=== PATIENT | male | born 1995 | race Two or more races ===

== ENCOUNTER 2024-07-14 16:44 | Emergency (ER) | payer MEDICAID, SELFPAY ==
[2024-07-14 16:53] VITALS: BP 119/74; PULSE 104; RESP 17; TEMP 37.2; O2SAT 95
--- NOTE | 2024-07-14 17:09 | PD.EDADULT ---
ED General RME/HPI General Chief complaint: Seizure Stated complaint: SEIZURES Time Seen by Provider: 07/14/24 17:04 Arrival date/time: 07/14/24 16:44 CC: Seizure disorder with seizures HPI patient had a seizure lasting approximately 4 to 5 minutes, postictal period is reported by EMS was approximately 10 minutes. Patient admits that he is weaned himself off his lamotrigine. He was on 100 mg twice daily and then weaned himself over the last 4 weeks down to half tablet once a day. Last dose 3 days ago. Patient is awake alert oriented complaining of a mild headache denies fever chills runny nose or headache prior to seizures. No other complaints at this time. EMS report tachycardia but no other abnormal vital signs. Related Data Previous Rx's ?Medication ?Instructions ?Recorded levetiracetam 500 mg tablet 500 mg PO BID #60 tabs 08/26/20 (Keppra) divalproex 500 mg tablet,delayed 500 mg PO TID 60 days #180 tabs 10/20/21 release (Depakote) lamotrigine 100 mg tablet 100 mg PO BID #30 tabs 07/14/24 (Lamictal) Allergies Allergy/AdvReac Type Severity Reaction Status Date / Time levetiracetam [From Keppra] Allergy Severe Difficulty Verified 01/03/24 07:56 Breathing Past Medical History Past Medical History NEUROLOGIC: Positive Neurological Disorders and Seizures CARDIAC: Positive Cardiac Disorders and Cardiac Arrhythmia; Negative Congestive Heart Failure RESPIRATORY: Negative Chronic Obstructive Pulmonary Disease (COPD) GENITOURINARY: Negative Renal Disease ENDOCRINE: Negative Diabetes Mellitus Type 1 or Diabetes Mellitus Type 2 HEMATOLOGIC: Negative Blood Disorders PSYCHO/SOCIAL: Positive Recreational Drug Use, Depression and Anxiety OTHER HISTORY: Negative Cancer Social History SMOKING STATUS: Current every day smoker SUBSTANCE USE: marijuana ED Exam Narrative Physical exam: [General: Not in any acute distress Head normocephalic HEENT: Within acceptable limits Neck is supple nontender Chest equal chest rise nontender to palpation Respiratory: Clear to auscultation no wheezes crackles or rubs CV: Rate rhythm is regular no murmurs rubs or clicks Abdomen is distended secondary to body habitus soft nontender no masses positive bowel sounds all 4 quadrants Back: No CVA tenderness no spinous process tenderness from cervical spine thoracic and lumbar spine Skin: Intact no petechiae rash induration ulceration or crepitus Extremities: Moving all extremities against resistance cap refill less than 2 seconds neurosensory intact Neuro: Awake alert oriented x3 Glascow coma 15 no focal deficits] Course Quality Measures none Orders Category Date Time Status Saline [Insert IV] NOW Care 07/14/24 17:05 Completed CBC Stat Lab 07/14/24 17:54 Completed CMP [Comprehensive Metabolic Panel] Stat Lab 07/14/24 17:54 Completed Drug Screen,Urine Stat Lab 07/14/24 17:47 Completed Urinalysis Stat Lab 07/14/24 17:47 Completed Acetaminophen Tab [Tylenol ES Tab] Med 07/14/24 19:53 Discontinued 1,000 mg PO X1 ONE LORazepam [Ativan Inj] Med 07/14/24 18:28 Discontinued 2 mg .ROUTE .STK-MED ONE LORazepam [Ativan Inj] Med 07/14/24 18:32 Discontinued 2 mg IVP X1 ONE Phenytoin Inj [Dilantin Inj] 1,000 mg Med 07/14/24 18:45 Discontinued Sodium Chloride 0.9% [Ns] 100 ml IV X1 lamoTRIgine [LaMICtal] Med 07/14/24 17:06 Discontinued 25 mg PO X1 ONE lamoTRIgine [LaMICtal] Med 07/14/24 17:15 Discontinued 50 mg PO X1 ONE Vital Signs Vital signs: Vital Signs Temperature 99.0 F 07/14/24 16:53 Pulse Rate 104 H 07/14/24 16:53 Respiratory Rate 17 07/14/24 16:53 Blood Pressure 119/74 07/14/24 16:53 Pulse Oximetry (%) 95 07/14/24 16:53 Oxygen Delivery Method Room Air 07/14/24 16:53 [facility] Patient data External records reviewed:: [facility] previous records and EMS form Clinical information provided by:: patient and EMS Social determinants that could affect healthcare access:: none Patient has the following chronic illnesses:: Seizure disorder, wean self off medication without consulting neurologist How is presenting disease/condition affected by chronic disease/condition?: exacerbated by Evaluation data The following diagnostics were reviewed and interpreted by me:: lab results Lab and/or radiology exams considered but not ordered:: CBC shows no acute leukocytosis anemia thrombocytopenia CMP shows no acute electrolyte imbalances renal impairment transaminitis or T. bili elevation Urine is negative for UTI Urine drug screen is positive for THC. Interpretation Summary: Patient be discharged home with a prescription to bridge him until he can see his neurologist for Lamictal. Patient is not willing to see Dr. Aguilar and refers to a neurologist in [place]. Medications Medications considered but not ordered:: None Medication administrations:: Medication Administration History Discontinued Medications Acetaminophen (Acetaminophen 500 Mg Tablet) 1,000 mg PO X1 ONE Stop: 07/14/24 19:54 Last Admin: 07/14/24 20:15 Dose: 1,000 mg Documented By: BILL Phenytoin Sodium 1,000 mg/ (Sodium Chloride) 120 mls @ 240 mls/hr IV X1 ONE Stop: 07/14/24 19:14 Last Infusion: 07/14/24 21:00 Dose: Infused Documented By: Admin: 07/14/24 19:20 Dose: 240 mls/hr Documented By: BILL Lamotrigine (Lamotrigine 25 Mg Chew) 25 mg PO X1 ONE Stop: 07/14/24 17:07 Last Admin: 07/14/24 17:38 Dose: Not Given Documented By: DO Non-Admin Reason: Cancelled by Provider Lamotrigine (Lamotrigine 25 Mg Chew) 50 mg PO X1 ONE Stop: 07/14/24 17:16 Last Admin: 07/14/24 18:18 Dose: 50 mg Documented By: Lorazepam (Lorazepam 2 Mg/Ml Vial) 2 mg IVP X1 ONE Stop: 07/14/24 18:33 Last Admin: 07/14/24 18:34 Dose: 2 mg Documented By: DO Comments: no scanner available Lorazepam (Lorazepam 2 Mg/Ml Vial) Confirm Administered Dose 2 mg .ROUTE .STK-MED ONE Stop: 07/14/24 18:29 Last Admin: 07/14/24 18:42 Dose: Not Given Documented By: DO Non-Admin Reason: Override Medication None Consultations Consultation(s) initiated? (list below): No Diagnosis Differential Diagnosis ED Complaint MDM: Pseudoseizures seizures status epilepticus Most likely diagnosis given after review of the tests above:: Seizure secondary to medication noncompliance Admission Indicated Admission indicated?: not indicated Explain why admission is indicated or not indicated:: Stable for outpatient follow-up Admission Request Was there a request for admission?: No Disposition Plan Disposition Plan: Discharge Discharge Attestation Discharge Attestation: The patient and all family members were given an opportunity to ask questions and understood the discharge instructions. Discharge instructions specifically effects, indications for sooner follow up or return to the emergency department, and the expected course of current diagnosis. Patient condition: Stable Medical Decision Making Differential Diagnosis Differential Diagnosis: Pseudoseizures seizures status epilepticus Lab Data 07/14/24 17:54 07/14/24 17:54 Labs: Lab Results 07/14/24 07/14/24 Range/Units 17:47 17:54 WBC 10.5 (3.8-10.6) Thou/mm3 RBC 4.95 (4.50-5.90) Miln/mm3 Hgb 14.9 (13.5-16.0) g/dL Hct 43.2 (41.0-53.0) % MCV 87 (80-100) fL MCH 30.1 (25.0-35.0) pg MCHC 34.5 (31.0-37.0) g/dl RDW Std Deviation 39.1 (35.1-43.9) fL Plt Count 300 (140-440) Thou/mm3 Neut % (Auto) 72 (37-80) % Lymph % (Auto) 18 (10-50) % [place] % (Auto) 7 (0-12) % Eos % (Auto) 2 (0-10) % Baso % (Auto) 0 (0-2.5) % Neut # (Auto) 7.6 (1.8-7.7) Thou/mm3 Lymph # (Auto) 1.9 (1.0-4.8) Thou/mm3 Gove # (Auto) 0.8 (0.0-0.8) Thou/mm3 Eos # (Auto) 0.2 (0.0-0.5) Thou/mm3 Baso # (Auto) 0.0 (0.0-0.2) Thou/mm3 Immature Gran # (Auto) 0.02 H (0.00-0.00) Thou/mm3 Absolute Nucleated RBC 0.00 (0.00-0.00) Thou/mm3 Immature Gran % 0 (0-0) % Nucleated RBC % 0 (0) /100 WBC Sodium 139 (136-145) mMol/L Potassium 3.8 (3.4-5.1) mMol/L Chloride 104 (98-107) mMol/L Carbon Dioxide 26.8 (20.0-31.0) mMol/L Anion Gap 8 (7-16) BUN 12 (9-23) mg/dL Creatinine 1.0 (0.6-1.3) mg/dL Estim Creat Clear Calc 129.0 (>60) mL/min eGFR > 60 (60 - ) See Note BUN/Creatinine Ratio 12 (12-20) Ratio Glucose 98 (74-106) mg/dL Calculated Osmolality 277 (275-295) Calcium 9.4 (8.3-10.6) mg/dL Corrected Calcium 9.4 (8.5-10.1) mg/dL Total Bilirubin 0.5 (0.3-1.2) mg/dL AST 22 (0-34) U/L ALT 26 (10-49) U/L Alkaline Phosphatase 51 (46-116) U/L Total Protein 7.4 (5.7-8.2) gm/dL Albumin 4.8 (3.5-5.0) gm/dL Globulin 2.6 (2.3-3.5) gm/dL Albumin/Globulin Ratio 1.8 (1.2-2.2) Ur Collection Type Clean Catch Urine Color Lt-Yellow (Lt Yel-Yel) Urine Clarity Clear (Clear/Hazy) Urine pH 6.0 (5.0-7.0) Ur Specific [place] 1.025 (1.001-1.035) Urine Protein 1+ A (Neg - Trace) Urine Glucose (UA) Negative (Negative) Urine Ketones Trace (Negative) Urine Blood Trace (Negative) Urine Nitrite Negative (Negative) Urine Bilirubin Negative (Negative) Urine Urobilinogen (Auto) Negative (0.0-1.0) mg/dL Ur Leukocyte Esterase Negative (Negative) Urine RBC 3 (0-3) /hpf Urine WBC 1 (0-5) /hpf Ur Squamous Epith Cells 0 (0-5) /hpf Urine Bacteria None (None) Urine Opiates Screen Negative (Negative) Urine Fentanyl Screen Negative (Negative) Ur Barbiturates Screen Negative (Negative) U Amphetamin/Meth Scrn Negative (Negative) U Benzodiazepines Scrn Negative (Negative) U Cocaine Metab Screen Negative (Negative) U Marijuana (THC) Screen Positive A (Negative) Discharge Plan Plan Patient Disposition: HOME (Self Care) Patient condition on transfer: Stable Prescriptions/Referrals Prescriptions/Med Rec: New lamotrigine [Lamictal] 100 mg tablet 100 mg PO BID Qty: 30 1RF No Action divalproex [Depakote] 500 mg tablet,delayed release (DR/EC) 500 mg PO TID 60 Days Qty: 180 1RF Rx Instructions: one pill in am, and 2 pills in the evening (so technically, it will be twice a day) levetiracetam [Keppra] 500 mg tablet 500 mg PO BID Qty: 60 0RF Referrals: Oneal Thomas FNP [Primary Care Provider] - In 1 week Problem List Clinical Impression: Seizure disorder Patient/Caregiver Discharge Instructions Other Activity Instructions:: Do not wean yourself off Lamictal again please coordinate with your neurologist your antiseizure medications and remain on the prescribed dose. Education Materials: ED Seizure, Recurrent (Adult) Print Language: Somali Stand Alone Forms: Aruna Award Info., Work/School Release, Patient Portal Info Letter BIRD/KVNG Supervising Physician BIRD/KVNG Supervising Physician: Sarath Rice ENP
--- NOTE | 2024-07-14 17:40 | PC.NURSE ---
PT CAME IN WITH C/O SZ ACTIVITY. PT STATES THAT HE WAS WATCHING TV THEN WOKE UP TO PARAMEDICS IN FRONT OF HIM. PT HAS HISTORY OF SZ BUT STATES THAT HE STOPPED TAKING HIS MEDICATIONS 1 MONTH AGO BECAUSE HE DID NOT LIKE THE WAY THEY MADE HIM FEEL.
--- NOTE | 2024-07-14 17:42 | PC.NURSE ---
SIDE RAILS PADDED AT THIS TIME FOR SEIZURE PRECAUTIONS
[2024-07-14 17:55] VITALS: BMI 24.3
[2024-07-14 18:01] LABS: Collection Type, Urine Clean Catch; Squamous Epithelial Cell,Urine 0 /hpf (0-5)
[2024-07-14 18:05] LABS: Basophils % (Auto) 0 % (0-2.5); Eosinophils # (Auto) 0.2 Thou/mm3 (0.0-0.5); Eosinophils % (Auto) 2 % (0-10); Hematocrit 43.2 % (41.0-53.0); Hemoglobin 14.9 g/dL (13.5-16.0); Immature Granulocytes % (Auto) 0 % (0-0); Immature Granulocytes Auto 0.02 Thou/mm3 (0.00-0.00); Lymphocytes # (Auto) 1.9 Thou/mm3 (1.0-4.8); Lymphocytes % (Auto) 18 % (10-50); Mean Corpuscular HGB Conc 34.5 g/dl (31.0-37.0); Mean Corpuscular Hemoglobin 30.1 pg (25.0-35.0); Mean Corpuscular Volume 87 fL (80-100); Monocytes # (Auto) 0.8 Thou/mm3 (0.0-0.8); Monocytes % (Auto) 7 % (0-12); Neutrophils # (Auto) 7.6 Thou/mm3 (1.8-7.7); Neutrophils % (Auto) 72 % (37-80); Nucleated Red Blood Cell % 0 /100 WBC (0); Platelet Count 300 Thou/mm3 (140-440); RDW Standard Deviation 39.1 fL (35.1-43.9); Red Blood Count 4.95 Miln/mm3 (4.50-5.90); White Blood Count 10.5 Thou/mm3 (3.8-10.6)
[2024-07-14] MEDS: lamoTRIgine 25 MG CHEW 50 MG PO (18:18)
[2024-07-14 18:20] LABS: Bilirubin,Urine Negative (Negative); Blood,Urine Trace (Negative); Clarity,Urine Clear (Clear/Hazy); Color,Urine Lt-Yellow (Lt Yel-Yel); Glucose, Urine Negative (Negative); Ketones,Urine Trace (Negative); Leukocyte Esterase,Urine Negative (Negative); Nitrite,Urine Negative (Negative); Protein,Urine 1+ (Neg - Trace); RBC,Urine 3 /hpf (0-3); Specific Gravity,Urine 1.025 (1.001-1.035); Urobilinogen,Urine Negative mg/dL (0.0-1.0); WBC,Urine 1 /hpf (0-5)
[2024-07-14 18:31] LABS: Alanine Aminotransferase 26 U/L (10-49); Albumin, Serum 4.8 gm/dL (3.5-5.0); Albumin/Globulin Ratio 1.8 (1.2-2.2); Alkaline Phosphatase 51 U/L (46-116); Anion Gap 8 (7-16); Aspartate Amino Transferase 22 U/L (0-34); BUN/Creatinine Ratio 12 Ratio (12-20); Bilirubin,Total 0.5 mg/dL (0.3-1.2); Blood Urea Nitrogen 12 mg/dL (9-23); Calcium 9.4 mg/dL (8.3-10.6); Calcium (Corrected) 9.4 mg/dL (8.5-10.1); Carbon Dioxide 26.8 mMol/L (20.0-31.0); Chloride 104 mMol/L (98-107); Globulin 2.6 gm/dL (2.3-3.5); Glucose 98 mg/dL (74-106); Osmolality,Calculated 277 (275-295); Potassium 3.8 mMol/L (3.4-5.1); Sodium 139 mMol/L (136-145); Total Protein 7.4 gm/dL (5.7-8.2); eGFR > 60 See Note
--- NOTE | 2024-07-14 18:31 | PC.NURSE ---
pt began having a full tonic clonic seizure at this time lasting 2 min. provider at bedside
[2024-07-14] MEDS: LORazepam 2 MG/ML VIAL IVP (18:34)
[2024-07-14 18:42] LABS: Amphetamine/Methamp Scrn,U Negative (Negative); Barbiturate Screen,Urine Negative (Negative); Benzodiazepines Screen,Urine Negative (Negative); Benzoylecgonine Screen, Ur Negative (Negative); Fentanyl Screen,Urine Negative (Negative); Opiate Screen,Urine Negative (Negative); THC Screen,Urine Positive (Negative)
[2024-07-14 18:46] VITALS: BP 122/62; PULSE 125; RESP 18; TEMP 36.3; O2SAT 95
[2024-07-14] MEDS: PHENYTOIN INJ 1,000 MG in SODIUM CHLORIDE 0.9% 100 ML 240 MG IV (19:20)
[2024-07-14 20:03] VITALS: BP 116/81; PULSE 80; RESP 20; O2SAT 95
[2024-07-14] MEDS: ACETAMINOPHEN 500 MG TABLET 1000 MG PO (20:15)
[2024-07-14 20:16] VITALS: BP 116/81; PULSE 81; RESP 18; TEMP 36.6; O2SAT 98
== END 2024-07-14 21:02 | disposition home or self-care (01) ==
PROVIDERS: Registered Nurse General Practice; Emergency Provider Emergency Medicine; PCP Nurse Practitioner
DX: R56.9 Unspecified convulsions (principal)
CPT/HCPCS: 36415; 80053; 80307; 81001; 85025; 96374; 99284; J1165; J2060; J7050; A9270

== ENCOUNTER 2024-09-21 22:03 | Emergency (ER) | payer MEDICAID, SELFPAY ==
[2024-09-21 22:14] VITALS: BP 127/69; PULSE 86; RESP 18; TEMP 36.8; O2SAT 96
[2024-09-21 22:16] VITALS: BMI 23.1
--- NOTE | 2024-09-21 22:51 | PC.NURSE ---
2240 PT C/O HE IS WAITING TO LONG TO GET INTO AA ROOM. PT STATES HE SHOULD LEAVE. I EXPLAINED THAT EVERY ROOM THAT HAS A NURSE IS FULL AT THIS TIME.
--- NOTE | 2024-09-21 22:53 | PC.NURSE ---
7363 PT TALKING ON HIS PHONE AND WALKING OUT OF ED.
--- NOTE | 2024-09-21 22:59 | PC.NURSE ---
PER EMS PATIENT DID NOT WANT TO BE SEEN AND WALKED OUT OF THE ED. PATIENT HAD CALLED FOR TRANSPORTATION, PATIENT WAS SEEN WALKING OUT OF ED LOBBY AND ENTERING A VEHICLE AND LEAVING. NO REPORT RECEIVED FROM EMS. NO CONTACT MADE WITH PATIENT. PATIENT LEFT PRIOR TO TRIAGE.
== END 2024-09-21 22:59 | disposition left against medical advice (07) ==
LOC: SERX 23:10
PROVIDERS: Emergency Provider Emergency Medicine
DX: Z53.21 Procedure and treatment not carried out due to patient leaving prior to being seen by health care provider (principal)
CPT/HCPCS: 99281

== ENCOUNTER 2025-05-19 05:31 | Emergency (ER) | payer MEDICAID, SELFPAY ==
--- NOTE | 2025-05-19 05:34 | PD.EDSEIZ ---
ED Seizures RME/HPI General Chief Complaint: Seizure Stated Complaint: SEIZURES Time Seen by Provider: 05/19/25 05:33 Arrival date/time: 05/19/25 05:31 RME / HPI RME / HPI Narrative: DR. ANN MAIN ED EVALUATION: Patient with Hx of Seizure Disorder was reported 3 successive seizures over the last several hours. Patient initially resisted presenting to ED via EMS and eventually conceded. Patient experienced generalized tonic-clonic seizure en route lasting approximately 30 seconds with slight post-ictal phase. No urinary or bowel incontinence/tongue bite. Uopn arrival is actively seizing, so Hx primarily via EMS. PMH: Seizure Disorder, Cardiac arrythmia, Depression, and Anxiety PSH: Non-contributory Allergies: Social: Positive for Marijuana Related Data Previous Rx's ?Medication ?Instructions ?Recorded levetiracetam 500 mg tablet 500 mg PO BID #60 tabs 08/26/20 (Keppra) divalproex 500 mg tablet,delayed 500 mg PO TID 60 days #180 tabs 10/20/21 release (Depakote) lamotrigine 100 mg tablet 100 mg PO BID #30 tabs 07/14/24 (Lamictal) lamotrigine 100 mg tablet 100 mg PO QDAY #90 tabs 05/19/25 (Lamictal) lamotrigine 200 mg tablet 200 mg PO QDAY #90 tabs 05/19/25 (Lamictal) Allergies Allergy/AdvReac Type Severity Reaction Status Date / Time levetiracetam (From Keppra) Allergy Severe Difficulty Verified 01/03/24 07:56 Breathing Review of Systems Review of Systems ROS Unobtainable: unobtainable due to medical condition Past Medical History Past Medical History NEUROLOGIC: Positive Neurological Disorders and Seizures CARDIAC: Positive Cardiac Disorders and Cardiac Arrhythmia PSYCHO/SOCIAL: Positive Recreational Drug Use, Depression and Anxiety Social History SMOKING STATUS: Current every day smoker SUBSTANCE USE: marijuana ED Exam Narrative Physical exam: GEN. APPEARANCE: The patient is ongoing tonic clonic activity with rhythmic movement notably diaphoretic, pupils mid-dilated and reactive. Patient has good eye contact. Patient is cooperative. VITALS: All vitals were reviewed which are normal according to my interpretation HEENT: Normocephalic, atraumatic and nontender. Pupils are mid-dilated and reactive. Oral mucosa is moist. NECK: Supple, nontender, no meningismus, no JVD. There is no thyromegaly and no lymphadenopathy. CHEST: Nontender on palpation no deformity and no crepitus. CARDIOVASCULAR: Heart regular rhythm, no murmur or gallop rub or extra beats. LUNGS: Sonorous respirations bilaterally with symmetrical chest rise. No laboring tachypnea. No intercostal subcostal retraction. ABDOMEN: Soft, flat, nontender to palpation, no guarding or rebound tenderness. There are no abnormal masses palpated. No pulsatile masses or bruits. Active and normal bowel sounds. EXTREMITIES: Normal inspection and palpation. No edema. No cyanosis. Patient is able to move all 4 extremities well SKIN: Warm and dry, no rashes noted. MUSCULOSKELETAL: No lumbar or midline bony tenderness. There is no CVA tenderness. No paraspinal muscle spasm or tenderness. NEURO: Post-ictal, minimal response to tactile and verbal stimuli, skin is grossly diaphoretic PSYCHIATRIC: Unaccessible at this time. LYMPHATICS: No major lymphadenopathy noted. Course Quality Measures none Orders Category Date Time Status Bedside COVID-19 Antigen Test NOW Care 05/19/25 05:49 Completed [employer] Steward/Stewardess NOW Care 05/19/25 05:34 Completed Continuous Pulse Oximetry NOW Care 05/19/25 05:33 Completed EKG (ED ONLY) *Do not use* NOW Care 05/19/25 05:34 Completed Insert IV STAT Care 05/19/25 05:33 Completed NPO NOW Care 05/19/25 05:34 Completed Seizure precautions ONCE Care 05/19/25 05:[address] cervical spine wo con Stat Exams 05/19/25 05:[address] head/brain wo con Stat Exams 05/19/25 05:37 Completed EKG (ED Only) Stat Exams 05/19/25 05:33 Ordered XR chest 1V portable Stat Exams 05/19/25 05:53 Completed Acetaminophen Stat Lab 05/19/25 05:52 Completed Alcohol, Blood Medical Stat Lab 05/19/25 05:52 Completed CBC Stat Lab 05/19/25 05:52 Completed Comprehensive Metabolic Panel Stat Lab 05/19/25 05:52 Completed Drug Screen,Urine Stat Lab 05/19/25 09:30 Completed Influenza A & B Rapid Panel Stat Lab 05/19/25 05:52 Completed Magnesium Stat Lab 05/19/25 05:52 Completed TSH [Thyroid Stimulating Hormone] Stat Lab 05/19/25 05:52 Completed Troponin I Stat Lab 05/19/25 05:52 Completed Urinalysis, C/S if Indicated Stat Lab 05/19/25 09:30 Completed ACETAMINOPHEN w/COD 300-30 [Tylenol w/Cod #3] Med 05/19/25 06:37 Discontinued 2 tab PO X1 ONE Ketorolac Inj [Toradol Inj] Med 05/19/25 09:29 Discontinued 30 mg IVP X1 ONE Lacosamide Ivp [Vimpat IVP] Med 05/19/25 05:58 Discontinued 200 mg IVP X1 ONE Midazolam Inj [Versed Inj] Med 05/19/25 05:46 Discontinued 5 mg IM X1 ONE Midazolam Inj [Versed Inj] Med 05/19/25 05:33 Discontinued 5 mg IVP X1 ONE Morphine* Inj Med 05/19/25 09:29 Discontinued 2 mg IV X1 ONE Ondansetron Inj [Zofran Inj] Med 05/19/25 06:38 Discontinued 4 mg IVP X1 ONE Sodium Chloride 0.9% 1000 ml [Ns] 1,000 ml Med 05/19/25 05:33 Discontinued IV 1,000 mls/hr Vital Signs Vital signs: Vital Signs Temperature 99.8 F 05/19/25 06:08 Pulse Rate 81 05/19/25 06:08 Respiratory Rate 14 05/19/25 06:08 Blood Pressure 173/89 H 05/19/25 06:08 Pulse Oximetry (%) 99 05/19/25 06:08 Oxygen Delivery Method Room Air 05/19/25 06:08 Seizure MDM Narrative MDM Narrative:: Scribe Attestation: IKaylynn am scribing for and in the presence of Dr. Terry. Provider Notation: Although this document has been carefully reviewed, there may still be some phonetic and other typographical errors. These errors are purely grammatical due to imperfections in the software program and should not be construed in any way to compromise the substance of the patient's medical care during this visit. Patient with Hx of Seizure Disorder was reported 3 successive seizures over the last several hours. Patient initially resisted presenting to ED via EMS and eventually conceded. Please see PE findings. Patient immediately triaged to monitored bed, IV established, patient received 5 mg of Versed. At the time, seizure activity abated. Seizure protocol initiated and CT scan will also be obtained given recent history of head strike. Please see AM physician's note for final disposition. Patient data External records reviewed:: [facility] previous records (Reviewed prior ED records from 07/14/24. Patient was seen for Seizure disorder.) and EMS form Clinical information provided by:: EMS Social determinants that could affect healthcare access:: substance use (Marijuana) Patient has the following chronic illnesses:: Seizures How is presenting disease/condition affected by chronic disease/condition?: exacerbated by Evaluation data The following diagnostics were reviewed and interpreted by me:: lab results, radiology exam(s) and EKG tracing(s) (Pending.) Lab and/or radiology exams considered but not ordered:: None Interpretation Summary: RADIOLOGY Head/Brain CT: Pending official radiology report. Medications / Prescriptions Medications or Prescriptions considered but not ordered:: None Medication administrations:: Medication Administration History Discontinued Medications Acetaminophen/Codeine Phosphate (Acetaminophen W/Cod 300-30 Tablet) 2 tab PO X1 ONE Stop: 05/19/25 06:38 Last Admin: 05/19/25 06:43 Dose: 2 tab Documented By: DT Sodium Chloride (Ns) 1,000 mls @ 1,000 mls/hr IV .Q1H ONE Stop: 05/19/25 06:32 Last Infusion: 05/19/25 06:50 Dose: Infused Documented By: Admin: 05/19/25 05:50 Dose: 1,000 mls/hr Documented By: DT Ketorolac Tromethamine (Ketorolac Inj 30 Mg/Ml Vial) 30 mg IVP X1 ONE Stop: 05/19/25 09:30 Last Admin: 05/19/25 10:09 Dose: 30 mg Documented By: VG Lacosamide (Lacosamide Inj 200 Mg/20 Ml Vial) 200 mg IVP X1 ONE Stop: 05/19/25 05:59 Last Admin: 05/19/25 06:23 Dose: 200 mg Documented By: DT Midazolam HCl (Midazolam Inj 1 Mg/Ml Vial 2 Ml) 5 mg IVP X1 ONE Stop: 05/19/25 05:34 Last Admin: 05/19/25 05:47 Dose: Not Given Documented By: CVL Non-Admin Reason: Cancelled by Provider Midazolam HCl (Midazolam Inj 1 Mg/Ml Vial 2 Ml) 5 mg IM X1 ONE Stop: 05/19/25 05:47 Last Admin: 05/19/25 05:53 Dose: 5 mg Documented By: DT Morphine Sulfate (Morphine Sulf Inj 4 Mg/Ml Vial) 2 mg IV X1 ONE Stop: 05/19/25 09:30 Last Admin: 05/19/25 10:05 Dose: Not Given Documented By: VG Non-Admin Reason: Patient Refused Ondansetron HCl (Ondansetron Inj 2 Mg/Ml Inj 2 Ml) 4 mg IVP X1 ONE; Protocol Stop: 05/19/25 06:39 Last Admin: 05/19/25 06:46 Dose: 4 mg Documented By: DT See above if any Consultations Consultation(s) initiated? (list below): No Diagnosis Seizure Differential Diagnosis: intractable seizure disorder, focal seizure, generalized seizure, new onset seizure, epileptic seizure and status epilepticus Most likely diagnosis given after review of the tests above:: Recurrent Seizure Admission Indicated Admission indicated?: not indicated Explain why admission is indicated or not indicated:: Pending CT, Labs, and EKG Admission Request Was there a request for admission?: No Disposition Plan Disposition Plan: other (specify) (Signed out to Dr. Ma at 6 AM) Discharge Plan Plan Patient Disposition: HOME (Self Care) Prescriptions/Referrals Prescriptions/Med Rec: New lamotrigine [Lamictal] 100 mg tablet 100 mg PO QDAY Qty: 90 0RF Rx Instructions: 100 mg every morning lamotrigine [Lamictal] 200 mg tablet 200 mg PO QDAY Qty: 90 0RF Rx Instructions: 200 mg every night at bedtime No Action divalproex [Depakote] 500 mg tablet,delayed release (DR/EC) 500 mg PO TID 60 Days Qty: 180 1RF Rx Instructions: one pill in am, and 2 pills in the evening (so technically, it will be twice a day) levetiracetam [Keppra] 500 mg tablet 500 mg PO BID Qty: 60 0RF lamotrigine [Lamictal] 100 mg tablet 100 mg PO BID Qty: 30 1RF Problem List Clinical Impression: Recurrent seizures Patient/Caregiver Discharge Instructions Discharge Activity: activity as tolerated Education Materials: ED Seizure, Recurrent (Adult) Additional Instructions: Discharge Instructions from Dr. Ma printed for you: 1.? After extensive evaluation, there is no life-threatening condition.? Such as stroke or brain tumor or brain injury. 2.? To prevent another seizure, take Lamictal 100 mg every morning and 200 mg every night at bedtime, as prescribed. 3.? See Dr. Aguilar (local neurologist) on 05/21/2025 for recheck and further care. Ask to review all test results and official radiology reports, to make sure you receive all necessary follow-ups and monitoring. 4.? Seek immediate medical care with another seizure or with any concerns. Print Language: Hungarian Stand Alone Forms: Aruna Award Info., Patient Portal Info Letter
--- NOTE | 2025-05-19 05:37 | XR_ITS ---
Examination: CT brain head without contrast. 2-D sagittal coronal reconstructions Date and time of exam: 05/19/2025, 8:03 a.m. CTDI: vol (mGy): 53.4 DLP: (mGycm): 1104 INDICATION: Seizure COMPARISON: 01/03/2024 Technique: Multiple CT axial sections of the brain have been obtained, 5 mm slice thickness. Contrast has not been administered. 2-D sagittal, coronal reconstructions have been obtained Low dose protocols were performed. One or more of the following dose reduction techniques were used; automated exposure control, adjustment of the mA and/or KV according to patient size, use of iterative reconstruction technique. Findings: No significant ventricular enlargement. Intra-axial or extra-axial hemorrhage density is not seen. No mass effect or midline shift Basal cisterns are not remarkable. Fourth ventricle is midline. Cranial vault intact. Impression: Negative for acute hemorrhage, mass effect or midline shift
[2025-05-19 05:45] VITALS: PULSE 90; RESP 14; O2SAT 99; BMI 23.1
[2025-05-19] MEDS: SODIUM CHLORIDE 0.9% 1000 ML 1,000 ML IV (05:50)
[2025-05-19] MEDS: MIDAZOLAM INJ 1 MG/ML VIAL 2 ML 5 MG IM (05:53)
--- NOTE | 2025-05-19 05:53 | XR_ITS ---
EXAMINATION: AP chest single view TECHNIQUE: AP portable upright chest single view Date and time: May 19, 2025, 0639 hours, comparison December 24, 2020 INDICATION: Chest pain shortness of breath today. FINDINGS: Normal heart size Minor prominence pulmonary vasculature. No lobar pneumonia or pulmonary edema Intact osseous structures IMPRESSION: Minor prominence pulmonary vasculature
--- NOTE | 2025-05-19 05:53 | XR_ITS ---
Examination: CT cervical spine without contrast 2-D sagittal reconstructions 2-D coronal reconstructions 3-D reconstructions. Exam date and time: 05/19/2025, 8:03 a.m. CTDI:vol (mGy) 16.8 DLP: (mGycm) 374 INDICATION: Trauma Technique: Multiple 2 mm axial sections of the cervical spine have been obtained. The coronal and sagittal reconstructions have been obtained. 3-D reconstructions have been obtained. Low dose protocols were performed. One or more of the following dose reduction techniques were used; automated exposure control, adjustment of the mA and/or KV according to patient size, use of iterative reconstruction technique. Findings: Axial sections demonstrate intact base of the skull. C1 exhibit satisfactory relationship to the odontoid. No acute cervical vertebral body fracture seen. Alignment posterior spinous processes satisfactory. No significant degenerative changes. Impression: No acute cervical fracture.
[2025-05-19 06:08] VITALS: BP 173/89; PULSE 81; RESP 14; TEMP 37.7; O2SAT 99
[2025-05-19 06:18] LABS: Basophils # (Auto) 0.1 Thou/mm3 (0.0-0.2); Basophils % (Auto) 0 % (0-2.5); Eosinophils # (Auto) 0.0 Thou/mm3 (0.0-0.5); Eosinophils % (Auto) 0 % (0-10); Hematocrit 47.6 % (41.0-53.0); Hemoglobin 16.0 g/dL (13.5-16.0); Immature Granulocytes Auto 0.08 Thou/mm3 (0.00-0.00); Lymphocytes # (Auto) 2.7 Thou/mm3 (1.0-4.8); Lymphocytes % (Auto) 15 % (10-50); Mean Corpuscular HGB Conc 33.6 g/dl (31.0-37.0); Mean Corpuscular Hemoglobin 30.1 pg (25.0-35.0); Mean Corpuscular Volume 90 fL (80-100); Monocytes # (Auto) 0.9 Thou/mm3 (0.0-0.8); Monocytes % (Auto) 5 % (0-12); Neutrophils # (Auto) 14.1 Thou/mm3 (1.8-7.7); Neutrophils % (Auto) 79 % (37-80); Nucleated Red Blood Cell # 0.00 Thou/mm3 (0.00-0.00); Nucleated Red Blood Cell % 0 /100 WBC (0); Platelet Count 408 Thou/mm3 (140-440); RDW Standard Deviation 40.2 fL (35.1-43.9); Red Blood Count 5.31 Miln/mm3 (4.50-5.90); White Blood Count 17.9 Thou/mm3 (3.8-10.6)
--- NOTE | 2025-05-19 06:19 | PD.EDADDENDU ---
Emergency Room Addendum <Isrrael Ma MD - Last Filed: 05/19/25 06:19> Addendum Narrative: My interpretation of the EKG is: Sinus rhythm (90 bpm) with nonspecific ST-T changes. Isrrael Ma MD <Sunithajanice Rust - Last Filed: 05/19/25 09:27> Addendum Narrative: I took over the care from Dr. Terry, the previous shift physician at 0600 hours on 05/19/2025.? See previous notes for complete H & P and ED course. I reviewed all diagnostic test results. My interpretation of the EKG is: Sinus rhythm (90 bpm) with nonspecific ST-T changes. Isrrael Ma MD My interpretation of the chest x-ray is My review of the head CT report is?negative for acute hemorrhage, mass effect or midline shift My review of the cervical CT report is?no acute cervical fracture. Blood tests and urine tests Diagnoses include Treatment here included Significant improvement Not yet done: I discussed the case with our hospitalist.? About the presentation and exam and diagnostics and treatments here.? And need of further care in the hospital. Will accept the patient. Not yet done: Based on my best medical judgment, made decision no further evaluation or treatment indicated at this time.? Patient understands and agrees to the discharge instructions customized and printed, see below. Isrrael Ma MD
[2025-05-19] MEDS: LACOSAMIDE INJ 200 MG/20 ML VIAL IVP (06:23)
[2025-05-19 06:33] VITALS: BP 118/64; PULSE 72; RESP 14; O2SAT 99
[2025-05-19] MEDS: ACETAMINOPHEN w/COD 300-30 TABLET 2 TAB PO (06:43)
[2025-05-19] MEDS: ONDANSETRON INJ 2 MG/ML INJ 2 ML 4 MG IVP (06:46)
[2025-05-19 07:17] LABS: Acetaminophen < 2.0 mcg/mL (10.0-20.0); Alanine Aminotransferase 26 U/L (10-49); Albumin, Serum 5.3 gm/dL (3.5-5.0); Albumin/Globulin Ratio 2.0 (1.2-2.2); Alcohol, Blood Medical < 3.0 mg/dL (0-10.0); Alkaline Phosphatase 59 U/L (46-116); Anion Gap 23 (7-16); Aspartate Amino Transferase 40 U/L (0-34); BUN/Creatinine Ratio 7 Ratio (12-20); Bilirubin,Total 1.0 mg/dL (0.3-1.2); Blood Urea Nitrogen 7 mg/dL (9-23); Calcium 9.6 mg/dL (8.3-10.6); Calcium (Corrected) 9.6 mg/dL (8.5-10.1); Carbon Dioxide 15.3 mMol/L (20.0-31.0); Chloride 105 mMol/L (98-107); Creatinine (Component) 1.0 mg/dL (0.6-1.3); Estimated Creatinine Clearance 127.0 mL/min (>60); Globulin 2.6 gm/dL (2.3-3.5); Glucose 146 mg/dL (74-106); Magnesium 2.1 mg/dL (1.6-2.6); Osmolality,Calculated 285 (275-295); Potassium 3.9 mMol/L (3.4-5.1); Sodium 143 mMol/L (136-145); Thyroid Stimulating Hormone 0.74 uIU/mL (0.55-4.78); Total Protein 7.9 gm/dL (5.7-8.2); Troponin I < 0.002 ng/mL (0.0-0.045); eGFR > 60 See Note
[2025-05-19 07:20] LABS: Influenza A Ag Negative; Influenza B Ag Negative
[2025-05-19 08:00] VITALS: PULSE 99
[2025-05-19 09:45] LABS: Collection Type, Urine Clean Catch
[2025-05-19 10:06] LABS: Bilirubin,Urine Negative (Negative); Blood,Urine Negative (Negative); Clarity,Urine Clear (Clear/Hazy); Color,Urine Lt-Yellow (Lt Yel-Yel); Culture Indicated,Urine Not Indicated; Glucose, Urine Negative (Negative); Ketones,Urine 2+ (Negative); Leukocyte Esterase,Urine Negative (Negative); Nitrite,Urine Negative (Negative); PH,Urine 7.0 (5.0-7.0); Protein,Urine Trace (Neg - Trace); RBC,Urine 1 /hpf (0-3); Specific Gravity,Urine 1.022 (1.001-1.035); Squamous Epithelial Cell,Urine < 1 /hpf (0-5); Urobilinogen,Urine Negative mg/dL (0.0-1.0); WBC,Urine 1 /hpf (0-5)
[2025-05-19] MEDS: KETOROLAC INJ 30 MG/ML VIAL IVP (10:09)
[2025-05-19 10:21] VITALS: BP 115/51; PULSE 90; RESP 18; TEMP 37.1; O2SAT 97
[2025-05-19 10:22] LABS: Amphetamine/Methamp Scrn,U Negative (Negative); Barbiturate Screen,Urine Negative (Negative); Benzodiazepines Screen,Urine Positive (Negative); Benzoylecgonine Screen, Ur Negative (Negative); Fentanyl Screen,Urine Negative (Negative); Opiate Screen,Urine Positive (Negative); THC Screen,Urine Positive (Negative)
== END 2025-05-19 10:21 | disposition home or self-care (01) ==
PROVIDERS: Emergency Medicine; Emergency Provider Emergency Medicine
DX: G40.909 Epilepsy, unspecified, not intractable, without status epilepticus (principal)
CPT/HCPCS: 36415; 70450; 71045; 72125; 80053; 80307; 80320; 80329; 81001; 83735; 84443; 84484; 85025; 87502; 87635; 93005; 96361; 96372; 96374; 96375; 99285; C9254; J1885; J2250; J2405; J7030; A9270; G0480